=== PATIENT | male | born 1950 | race Hispanic/Latino ===

== ENCOUNTER 2018-09-15 06:47 | Day surgery (SDC) | payer OTHER ==
[2018-09-13 14:24] VITALS: BP 136/73
[2018-09-13 14:25] LABS: EOSINOPHILS % (AUTO) 3.7 % (0.0-8.0); HEMATOCRIT 41.1 % (42-54); LYMPHOCYTES % (AUTO) 21.5 % (21.0-51.0); MEAN CORPUSCULAR HEMOGLOBIN 28.1 pg (27.0-33.0); MEAN CORPUSCULAR HGB CONC 32.8 g/dL (32.0-36.0); MEAN CORPUSCULAR VOLUME 85.8 fL (79-99); MONOCYTES % (AUTO) 7.7 % (3.0-13.0); NEUTROPHILS % (AUTO) 66.1 % (40.0-77.0); NUCLEATED RED BLOOD CELLS 0.1 % (0.0-0.19); PLATELET COUNT (AUTO) 330 K/uL (130-400); RED BLOOD CELL COUNT(AUTO) 4.78 MIL/uL (4.50-6.20); RED CELL DISTRIBUTION WIDTH 15.4 % (11.0-15.5); WHITE BLOOD COUNT (AUTO) 11.5 K/uL (4.8-10.8)
[2018-09-13 14:32] LABS: CREATININE 1.3 mg/dL (0.5-1.5); POTASSIUM 4.3 mmol/L (3.5-5.1)
[~2018-09-15] VITALS: Ht 167.6 cm; Wt 66.4 kg
[2018-09-15] VITALS (14 sets, daily range): BP systolic 105–149; BP diastolic 60–76
[~2018-09-15 06:47] MED LIST: AMLO5TAB7 PO; ASPI81TA40 PO; METF-446 PO; SIMV20TA6 PO
[2018-09-15] MEDS ORDERED: SODIUM CHLORIDE 0.9% 1000ML 1,000 ML IV ONE (07:20)
[2018-09-15] MEDS: CEFTRIAXONE SODIUM 1 GM IVP ONE ×2 (07:41→09:48)
[2018-09-15] MEDS ORDERED: IOHEXOL-350 50ML VIAL IV ONE (07:57)
[2018-09-15] MEDS ORDERED: LIDOCAINE PF 2% 5ML ABBOJECT ONE (09:40)
[2018-09-15] MEDS ORDERED: DEXAMETHASONE SOD PHOSPHATE 10MG/ML 1ML VIAL ONE (09:40)
[2018-09-15] MEDS ORDERED: MIDAZOLAM HCL 1 MG/ML 2ML VIAL ONE (09:41)
[2018-09-15] MEDS ORDERED: ONDANSETRON HCL 4 MG/2 ML VIAL ONE (09:41)
[2018-09-15] MEDS ORDERED: FENTANYL CITRATE PF 50 MCG/1 ML 2ML VIAL ONE (09:41)
[2018-09-15] MEDS ORDERED: PROPOFOL 10 MG/ML 20ML VIAL IV ONE (09:41)
[2018-09-15] MEDS ORDERED: MEPERIDINE-PF 25 MG/ML SYG ONE (10:39)
[2018-09-15] MEDS ORDERED: PHENAZOPYRIDINE HCL 200 MG TABLET ONE (11:57)
== END 2018-09-15 12:20 | disposition home or self-care (01) ==
LOC: DAH 06:47
PROVIDERS: ATTEND Urology
DX: N21.0 Calculus in bladder (principal); I10 Essential (primary) hypertension; E11.9 Type 2 diabetes mellitus without complications; Z79.84 Long term (current) use of oral hypoglycemic drugs; Z79.899 Other long term (current) drug therapy; Z98.890 Other specified postprocedural states
CPT/HCPCS: 36415; 52310; 52317; 80048; 82948 ×2; 85025; 88300; 93005; A4218; A4344; A4354; A4358; A4510; A4600; A5113; J0696; J1100; J2001; J2175; J2250; J2405; J2704; J3010; J7030 ×2; Q9967